=== PATIENT | male | born 1985 | race Two or more races ===

== ENCOUNTER 2025-03-09 05:21 | Emergency (ER) | payer MEDICAID, SELFPAY ==
[2025-03-09 05:22] VITALS: BP 158/104; PULSE 90; RESP 18; TEMP 36.8; O2SAT 95; BMI 23.6
--- NOTE | 2025-03-09 05:38 | PD.EDEYE ---
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 Limitations: no limitations Related Data Previous Rx's ?Medication ?Instructions ?Recorded ibuprofen 600 mg tablet 600 mg PO Q8HR PRN PAIN #20 tabs 08/26/16 ibuprofen 800 mg tablet 800 mg PO Q8H PRN pain #20 tabs 03/09/25 Allergies Allergy/AdvReac Type Severity Reaction Status Date / Time NKA* Allergy Uncoded 03/09/25 05:26 Review of Systems Review of Systems Systems Reviewed: All systems reviewed, normal except as documented Constitutional Constitutional: Reports system reviewed and no additional complaints, except as documented and Reports as per HPI Eyes Eyes: Reports system reviewed and no additional complaints, except as documented and Reports as per HPI Cardiovascular Cardiovascular: Reports system reviewed and no additional complaints, except as documented and Reports as per HPI Respiratory Respiratory: Reports system reviewed and no additional complaints, except as documented and Reports as per HPI Gastrointestinal Gastrointestinal: Reports system reviewed and no additional complaints, except as documented and Reports as per HPI Neurologic Neurologic: Reports system reviewed and no additional complaints, except as documented and Reports as per HPI Past Medical History Social History SMOKING STATUS: Never smoker SUBSTANCE USE: does not use (denies) ED Exam General Limitations: Present no limitations General appearance: Present alert and in no apparent distress Head Head exam: Present atraumatic Eye Eye exam: Present other (Left eye normal exam right eye legally blind opacity right eye s/p corneal transplant no tenderness around the area of the righte eye no redness) ENT ENT exam: Present normal exam, normal oropharynx and mucous membranes moist Neck Neck exam: Present normal inspection, full ROM and trachea midline Chest Chest inspection: Present normal inspection and symmetric chest wall rise Respiratory Respiratory exam: Present normal lung sounds bilaterally; Absent respiratory distress, wheezes, stridor, accessory muscle use or prolonged expiratory phase Cardiovascular Cardiovascular exam: Present regular rate, normal rhythm and normal heart sounds; Absent bradycardia, tachycardia, irregular rhythm, systolic murmur or diastolic murmur Abdominal Exam Abdominal exam: Present soft and normal bowel sounds Extremities Exam Extremities exam: Present normal inspection and full ROM Back Exam Back exam: Present normal inspection and full ROM Neurological Exam Neurological exam: Present alert, oriented X3, CN II-XII intact, normal gait and reflexes normal; Absent motor sensory deficit Psychiatric Psychiatric exam: Present normal affect and normal mood Skin Skin exam: Present warm, dry, intact and normal color Course Quality Measures none Orders Category Date Time Status Ibuprofen Tab [Motrin Tab] Med 03/09/25 05:35 Once 800 mg PO X1 ONE Vital Signs Vital signs: Vital Signs Temperature 98.2 F 03/09/25 05:22 Pulse Rate 90 03/09/25 05:22 Respiratory Rate 18 03/09/25 05:22 Blood Pressure 158/104 H 03/09/25 05:22 Pulse Oximetry (%) 95 03/09/25 05:22 Oxygen Delivery Method Room Air 03/09/25 05:22 Oxygen saturation 95% in room air Eye MDM Narrative MDM Narrative:: This is a case of 39-year-old male who came in in the emergency room due to right toe right thigh pain the day patient only specified that he wants only medication for pain and he wants a work note patient have 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 gunn at this point there is no further testing or exam needed by the patient since the patient only wants a pain medication and agrees that he will just take Motrin and will be prescribed with Motrin for pain a work note was also given for today's date patient will follow-up with his header up for further evaluation and treatment and for any worsening symptoms he will return in the emergency room immediately or call 911 Patient was discharged with comfortable condition walking with stable gait. Patient verbalized no further complains explained diagnosis and answered patient question. Patient is comfortable with the proposed management plan including the need to follow up with his/her primary care physician and any specialist if applicable Discussed patient for any urgent condition or worsening sx, He/She needed to go to emergency room immediately or call 911. Patient acknowledge the responsibility to follow up as instructed and to monitor her/his symptoms. For any persistence of the symptoms for more than 3-5 days return precaution advised. Patient data External records reviewed:: [facility] previous records Clinical information provided by:: patient Social determinants that could affect healthcare access:: none Patient has the following chronic illnesses:: None How is presenting disease/condition affected by chronic disease/condition?: no chronic disease Evaluation data The following diagnostics were reviewed and interpreted by me:: other (specify) (None) Lab and/or radiology exams considered but not ordered:: None Interpretation Summary: None Medications / Prescriptions Medications or Prescriptions considered but not ordered:: Given Medication administrations:: Medication Administration History Ibuprofen (Ibuprofen Tab 400 Mg Tablet) 800 mg PO X1 ONE Stop: 03/09/25 05:36 Given Consultations Consultation(s) initiated? (list below): No Diagnosis Eye Problem Differential Diagnosis: other (Right eye pain) Most likely diagnosis given after review of the tests above:: Right eye pain Admission Indicated Admission indicated?: not indicated Explain why admission is indicated or not indicated:: Not indicated Admission Request Was there a request for admission?: No Admission Attestation Admission request attestation: Not indicated Disposition Plan Disposition Plan: Discharge Discharge Attestation Discharge Attestation: The patient and all family members were given an opportunity to ask questions and understood the discharge instructions. Discharge instructions specifically effects, indications for sooner follow up or return to the emergency department, and the expected course of current diagnosis. Patient condition: Stable Discharge Plan Plan Patient Disposition: HOME (Self Care) Patient condition on transfer: Stable Prescriptions/Referrals Prescriptions/Med Rec: New ibuprofen 800 mg tablet 800 mg PO Q8H PRN (Reason: pain) Qty: 20 0RF No Action ibuprofen 600 MG tablet 600 mg PO Q8HR PRN (Reason: PAIN) Qty: 20 0RF Problem List Clinical Impression: Pain in right eye, Legally blind in right eye, as defined in [place] Patient/Caregiver Discharge Instructions Education Materials: Understanding Vision Problems, ED Pain, Acute, Uncertain Cause Additional Instructions: Follow-up with your primary care physician in 2 days for reevaluation follow-up with your header up for further evaluation and treatment of your right eye pain status post corneal transplant recurrence persistent worsening symptoms or any emergent concern call 911 or go to the nearest emergency room Print Language: Faroese Stand Alone Forms: Ara Award Info., Work/School Release, Patient Portal Info Letter PA/ASSISTANT CASINO SHIFT MANAGER Supervising Physician PA/ASSISTANT CASINO SHIFT MANAGER Supervising Physician: dr gunn
[2025-03-09] MEDS: IBUPROFEN TAB 400 MG TABLET 800 MG PO (05:55)
== END 2025-03-09 05:58 | disposition home or self-care (01) ==
LOC: SERX 05:52
PROVIDERS: Emergency Provider Emergency Medicine
DX: H57.11 Ocular pain, right eye (principal); H54.8 Legal blindness, as defined in USA
CPT/HCPCS: 99282; A9270

== ENCOUNTER 2025-03-16 16:24 | Emergency (ER) | payer MEDICAID, SELFPAY ==
[2025-03-16 16:25] VITALS: BMI 29.5
[2025-03-16 17:16] VITALS: BP 156/104; PULSE 109; RESP 19; TEMP 36.9; O2SAT 99
--- NOTE | 2025-03-16 18:48 | EKG_ITS ---
[facility] Test Date: 2025-03-16 Pat Name: ALEX PAT Department: Room: - Gender: Male [employer]: : 1985 Requested By: Ralph Solis Order Number: [id number] Reading MD: Ralhp Solis Measurements Intervals Union Rate: 118 P: 25 SC: 147 QRS: -34 QRSD: 93 T: 10 QT: 331 QTc: 465 Interpretive Statements SINUS TACHYCARDIA LEFT AXIS DEVIATION [QRS AXIS < -30] S1-S2-S3 PATTERN, CONSISTENT WITH PULMONARY DISEASE, RVH, OR NORMAL VARIANT Compared to ECG 03/16/2025 05:18:05 No significant changes /store/S0/[id number]/ecg/[id number].pdf
[2025-03-16 19:21] LABS: Lactate (Lactic Acid) 2.2 mMol/L (0.4-2.0)
[2025-03-16 19:40] LABS: Troponin I < 0.020 ng/mL (0.0-0.045)
[2025-03-16 20:05] LABS: Basophils # (Auto) 0.0 Thou/mm3 (0.0-0.2); Basophils % (Auto) 0 % (0-2.5); Eosinophils # (Auto) 0.1 Thou/mm3 (0.0-0.5); Eosinophils % (Auto) 0 % (0-10); Hematocrit 44.5 % (41.0-53.0); Hemoglobin 15.3 g/dL (13.5-16.0); Immature Granulocytes Auto 0.07 Thou/mm3 (0.00-0.00); Lymphocytes # (Auto) 2.3 Thou/mm3 (1.0-4.8); Lymphocytes % (Auto) 16 % (10-50); Mean Corpuscular HGB Conc 34.4 g/dl (31.0-37.0); Mean Corpuscular Hemoglobin 29.7 pg (25.0-35.0); Mean Corpuscular Volume 86 fL (80-100); Monocytes # (Auto) 0.9 Thou/mm3 (0.0-0.8); Monocytes % (Auto) 7 % (0-12); Neutrophils # (Auto) 11.1 Thou/mm3 (1.8-7.7); Neutrophils % (Auto) 77 % (37-80); Nucleated Red Blood Cell # 0.00 Thou/mm3 (0.00-0.00); Nucleated Red Blood Cell % 0 /100 WBC (0); Platelet Count 276 Thou/mm3 (140-440); RDW Standard Deviation 43.3 fL (35.1-43.9); Red Blood Count 5.15 Miln/mm3 (4.50-5.90); White Blood Count 14.4 Thou/mm3 (3.8-10.6)
--- NOTE | 2025-03-16 20:28 | PD.EDWEAK ---
ED Weakness RME/HPI General Chief complaint: Weakness Stated complaint: WEAKNESS Time Seen by Provider: 03/16/25 18:31 Arrival date/time: 03/16/25 16:24 This is a case of 39-year-old male who came in in the emergency room due to chest pain and generalized weakness history of present illness started today when patient started to have the symptoms patient was seen here in the morning for abdominal pain and was treated with acute epigastric pain and hypomagnesemia patient states that the abdominal pain was resolved now with chest pain midsternal in character burning in character no shortness of breath no palpitation patient also having generalized weakness but no numbness no tingling sensation no headache no dizziness persistence of the symptoms this patient decided to sought consult here in the emergency room Limitations: no limitations Related Data Previous Rx's ?Medication ?Instructions ?Recorded ibuprofen 600 mg tablet 600 mg PO Q8HR PRN PAIN #20 tabs 08/26/16 ibuprofen 800 mg tablet 800 mg PO Q8H PRN pain #20 tabs 03/09/25 famotidine 20 mg tablet (Pepcid) 20 mg PO BID gerd 10 days #20 tabs 03/16/25 magnesium hydroxide 400 mg/5 mL 15 ml PO BID PRN GERD #355 mL 03/16/25 oral suspension (Milk of Magnesia) magnesium oxide 500 mg capsule 500 mg PO BID Hypomagnesemia 5 03/16/25 days #10 caps omeprazole 40 mg capsule,delayed 40 mg PO QDAY #30 caps 03/16/25 release Allergies Allergy/AdvReac Type Severity Reaction Status Date / Time No Known Allergies Allergy Verified 03/16/25 16:27 Review of Systems Review of Systems Systems Reviewed: All systems reviewed, normal except as documented Constitutional Constitutional: Reports system reviewed and no additional complaints, except as documented, Reports as per HPI, Denies body ache(s), Denies chills, Denies fever(s) and Reports weakness Cardiovascular Cardiovascular: Reports system reviewed and no additional complaints, except as documented, Reports as per HPI, Reports chest pain and Denies dyspnea Respiratory Respiratory: Reports system reviewed and no additional complaints, except as documented, Reports as per HPI, Denies chest congestion, Denies cough and Denies dyspnea Gastrointestinal Gastrointestinal: Reports system reviewed and no additional complaints, except as documented and Reports as per HPI Musculoskeletal Musculoskeletal: Reports system reviewed and no additional complaints, except as documented and Reports as per HPI Neurologic Neurologic: Reports system reviewed and no additional complaints, except as documented, Reports as per HPI and Reports weakness Past Medical History Past Medical History CARDIAC: Negative Cardiac Disorders or Congestive Heart Failure RESPIRATORY: Negative Chronic Obstructive Pulmonary Disease (COPD) or Asthma GENITOURINARY: Negative Renal Disease ENDOCRINE: Negative Diabetes Mellitus Type 1 or Diabetes Mellitus Type 2 HEMATOLOGIC: Negative Sickle Cell Disease Social History SMOKING STATUS: Current some day smoker SUBSTANCE USE: does not use (denies) ED Exam General Limitations: Present no limitations General appearance: Present alert, in no apparent distress and other (Awake alert oriented x 4 no focal deficit GCS 15/15 steady gait well-hydrated well-nourished) Head Head exam: Present atraumatic Eye Eye exam: Present normal appearance, PERRL and EOMI ENT ENT exam: Present normal exam, normal oropharynx and mucous membranes moist Neck Neck exam: Present normal inspection, full ROM and trachea midline Chest Chest inspection: Present normal inspection and symmetric chest wall rise Respiratory Respiratory exam: Present normal lung sounds bilaterally; Absent respiratory distress, wheezes, stridor, accessory muscle use or prolonged expiratory phase Cardiovascular Cardiovascular exam: Present regular rate, normal rhythm and normal heart sounds; Absent bradycardia, tachycardia, irregular rhythm, systolic murmur or diastolic murmur Abdominal Exam Abdominal exam: Present soft and normal bowel sounds; Absent distention, tenderness, guarding, rebound, rigidity, diminished bowel sounds, hyperactive bowel sounds, hypoactive bowel sounds or organomegaly Extremities Exam Extremities exam: Present normal inspection and full ROM Back Exam Back exam: Present normal inspection and full ROM Neurological Exam Neurological exam: Present alert, oriented X3, CN II-XII intact, normal gait and other (Awake alert oriented x 4 no focal deficit GCS 15/15 steady gait memory intact no facial droop no slurring of speech motor or sensory reflex were normal negative Babinski); Absent motor sensory deficit or reflexes normal Psychiatric Psychiatric exam: Present normal affect and normal mood Skin Skin exam: Present warm, dry, intact and normal color Course Quality Measures VTE prophylaxis Orders Category Date Time Status EKG (ED ONLY) *Do not use* NOW Care 03/16/25 18:48 Completed EKG (ED Only) Stat Exams 03/16/25 18:48 Draft CBC Stat Lab 03/16/25 19:08 Completed Lactic Acid [Lactate (Lactic Acid)] Stat Lab 03/16/25 19:00 Completed Troponin I Stat Lab 03/16/25 19:00 Completed Ondansetron Inj [Zofran Inj] Med 03/16/25 18:48 Discontinued 4 mg IVP X1 ONE Sodium Chloride 0.9% 1000 ml [Ns] 1,000 ml Med 03/16/25 18:48 Discontinued IV 999 mls/hr Vital Signs Vital signs: Vital Signs Temperature 98.4 F 03/16/25 17:16 Pulse Rate 109 H 03/16/25 17:16 Respiratory Rate 19 03/16/25 17:16 Blood Pressure 156/104 H 03/16/25 17:16 Pulse Oximetry (%) 99 03/16/25 17:16 Oxygen Delivery Method Room Air 03/16/25 17:16 Patient is afebrile not tachycardic not tachypneic initial blood pressure was 156/104 recheck and noted to be 145/85 patient pulse ox is 99% in room air normal Weakness MDM Narrative MDM Narrative:: This is a case of 39-year-old male who came in in the emergency room due to chest pain and generalized weakness history of present illness started today when patient started to have the symptoms patient was seen here in the morning for abdominal pain and was treated with acute epigastric pain and hypomagnesemia patient states that the abdominal pain was resolved now with chest pain midsternal in character burning in character no shortness of breath no palpitation patient also having generalized weakness but no numbness no tingling sensation no headache no dizziness persistence of the symptoms this patient decided to sought consult here in the emergency room physical examination patient is awake alert oriented not in distress nontoxic looking well-hydrated well-nourished lungs sound is clear no crackles no rales no retraction no stridor heart normal rate regular rhythm no murmur abdominal exam benign nonsurgical no guarding no rebound rigidity neurological exam is normal awake alert oriented x 4 no focal deficit GCS 15/15 steady I reviewed patient blood test this morning and noted that the WBC was increased to 15.4 repeated CBC was done tonight and noted decreased to 14.4 lactic acid also was decreased from 2.8-2.2 patient noted to have hypomagnesemia patient was given magnesium patient CTA abdomen chest and pelvis were also normal patient latest EKG was normal sinus tach 118 the troponin was also negative patient was given a bolus of normal saline and Zofran for nausea which patient condition markedly improved patient verbalized that there is no more weakness and chest pain was resolved he was advised to follow-up with PCP in 2 days for reevaluation and to be seen by sea air land officer for chest pain for any recurrence persistent worsening symptoms he will return to the emergency room immediately or call 9 1 he was prescribed with famotidine I also added omeprazole for possible gastritis modified diet patient agreed to the treatment plan and discharge Patient was discharged with comfortable condition walking with stable gait. Patient verbalized no further complains explained diagnosis and answered patient question. Patient is comfortable with the proposed management plan including the need to follow up with his/her primary care physician and any specialist if applicable Discussed patient for any urgent condition or worsening sx, He/She needed to go to emergency room immediately or call 911. Patient acknowledge the responsibility to follow up as instructed and to monitor her/his symptoms. For any persistence of the symptoms for more than 3-5 days return precaution advised. Discussed the result of the test and was given printed discharge instruction Patient data External records reviewed:: [facility] previous records Clinical information provided by:: none Social determinants that could affect healthcare access:: none Patient has the following chronic illnesses:: None How is presenting disease/condition affected by chronic disease/condition?: no chronic disease Evaluation data The following diagnostics were reviewed and interpreted by me:: lab results and radiology exam(s) Lab and/or radiology exams considered but not ordered:: Reviewed Interpretation Summary: Reviewed Medications / Prescriptions Medications or Prescriptions considered but not ordered:: Given Medication administrations:: Medication Administration History Discontinued Medications Sodium Chloride (Ns) 1,000 mls @ 999 mls/hr IV .Q1H1M ONE Stop: 03/16/25 19:48 Last Admin: 03/16/25 20:23 Dose: Not Given Documented By: KF Non-Admin Reason: Cancelled by Provider Ondansetron HCl (Ondansetron Inj 2 Mg/Ml Inj 2 Ml) 4 mg IVP X1 ONE; Protocol Stop: 03/16/25 18:49 Last Admin: 03/16/25 20:23 Dose: Not Given Documented By: KF Non-Admin Reason: Cancelled by Provider Given Consultations Consultation(s) initiated? (list below): No Diagnosis Weakness Differential Diagnosis: anemia and dehydration Most likely diagnosis given after review of the tests above:: Chest pain of unknown etiology generalized weakness Admission Indicated Admission indicated?: not indicated Explain why admission is indicated or not indicated:: Not indicated Admission Request Was there a request for admission?: No Admission Attestation Admission request attestation: Not indicated Disposition Plan Disposition Plan: Discharge Discharge Attestation Discharge Attestation: The patient and all family members were given an opportunity to ask questions and understood the discharge instructions. Discharge instructions specifically effects, indications for sooner follow up or return to the emergency department, and the expected course of current diagnosis. Patient condition: Stable Discharge Plan Plan Patient Disposition: HOME (Self Care) Prescriptions/Referrals Prescriptions/Med Rec: New omeprazole 40 mg capsule,delayed release(DR/EC) 40 mg PO QDAY Qty: 30 0RF No Action ibuprofen 600 MG tablet 600 mg PO Q8HR PRN (Reason: PAIN) Qty: 20 0RF magnesium oxide 500 mg capsule 500 mg PO BID 5 Days Qty: 10 0RF famotidine [Pepcid] 20 mg tablet 20 mg PO BID 10 Days Qty: 20 0RF magnesium hydroxide [Milk of Magnesia] 400 mg/5 mL suspension 15 ml PO BID PRN (Reason: GERD) Qty: 355 0RF ibuprofen 800 mg tablet 800 mg PO Q8H PRN (Reason: pain) Qty: 20 0RF Referrals: No Primary/Family,Physician [Primary Care Provider] - In 1 week Problem List Clinical Impression: Generalized weakness, Chest pain of unknown etiology, Gastritis Patient/Caregiver Discharge Instructions Education Materials: ED Chest Pain, Uncertain Cause, ED Gastritis (Adult), ED Weakness (Uncertain Cause) Additional Instructions: Follow-up with your primary care physician in 2 days for reevaluation and to be referred to sea air land officer for further evaluation and treatment of chest pain for possible echocardiogram stress test and Holter monitor it is also important to see a regional ehs manager for possible gastritis and further treatment recurrence persistent worsening symptoms or any emergent concern call 911 or go to the nearest emergency room continue with the medication that was prescribed this morning on your feet avoid skipping of meals avoid fatty fried high cholesterol food avoid spicy food avoid alcohol soda or coffee Print Language: Frisian Stand Alone Forms: Ara Award Info., Patient Portal Info Letter PA/COVER MAKER Supervising Physician PA/COVER MAKER Supervising Physician: Dr Alba
[2025-03-16 20:42] VITALS: BP 152/109; PULSE 106; RESP 18; TEMP 36.4; O2SAT 98
[2025-03-16 22:18] LABS: Reflex Lactate? Y
== END 2025-03-16 21:07 | disposition home or self-care (01) ==
PROVIDERS: Nurse Practitioner Family; Emergency Provider Emergency Medicine
DX: R53.1 Weakness (principal); R07.9 Chest pain, unspecified; K29.70 Gastritis, unspecified, without bleeding; R00.0 Tachycardia, unspecified
CPT/HCPCS: 36415; 83605; 84484; 85025; 93005